=== PATIENT | male | born 1950 | race Caucasian/White ===

== ENCOUNTER 2017-09-03 16:12 | Inpatient (IN) | payer BC ==
[~2017-09-03] VITALS: Ht 172.7 cm; Wt 152.6 kg
[~2017-09-03 16:12] MED LIST: ACHYD1T PO; NITR100C3 PO
[2017-09-03] MEDS ORDERED: D5W 100 ML IVPB 100 ML IV ONE (16:32)
[2017-09-03] MEDS ORDERED: DILTIAZEM 25 MG/5 ML INJ (CARDIZEM) VIAL ONE (16:45)
[2017-09-03] MEDS ORDERED: DILTIAZEM 125 MG/25 ML IV (CARDIZEM) IV ONE (16:45)
[2017-09-03 16:59] LABS: BASOPHILS % (AUTO) 0 % (0-10); EOSINOPHILS # (AUTO) 0.2 10^3/uL (0.0-0.3); EOSINOPHILS % (AUTO) 2 % (0-10); HEMATOCRIT 44 % (40-54); HEMOGLOBIN 14.9 G/DL (13.3-17.7); LYMPHOCYTES # (AUTO) 1.8 X 10^3 (1.0-4.0); LYMPHOCYTES % (AUTO) 23 % (12-44); MEAN CORPUSCULAR HEMOGLOBIN 31 PG (25-34); MEAN CORPUSCULAR HGB CONC 34 G/DL (32-36); MEAN CORPUSCULAR VOLUME 91 FL (80-99); MEAN PLATELET VOLUME 11.3 FL (7.4-10.4); MONOCYTES # (AUTO) 0.5 X 10^3 (0.0-1.0); MONOCYTES % (AUTO) 7 % (0-12); NEUTROPHILS # (AUTO) 5.5 X 10^3 (1.8-7.8); NEUTROPHILS % (AUTO) 68 % (42-75); PLATELET COUNT 203 10^3/uL (130-400); RED BLOOD COUNT 4.85 10^6/uL (4.35-5.85); RED CELL DISTRIBUTION WIDTH 14.3 % (10.0-14.5)
[2017-09-03 17:02] LABS: PROTHROMBIN TIME PATIENT 13.3 SEC (12.2-14.7)
[2017-09-03 17:12] LABS: ALANINE AMINOTRANSFERASE 20 U/L (0-55); ALBUMIN 3.7 GM/DL (3.2-4.5); ALKALINE PHOSPHATASE 85 U/L (40-136); BILIRUBIN,TOTAL 0.3 MG/DL (0.1-1.0); BUN/CREATININE RATIO 25; CALCIUM 9.2 MG/DL (8.5-10.1); CARBON DIOXIDE 23 MMOL/L (21-32); CHLORIDE 109 MMOL/L (98-107); CREATININE SERUM 1.11 MG/DL (0.60-1.30); GFR ESTIMATED > 60; GLUCOSE 126 MG/DL (70-105); MAGNESIUM 1.8 MG/DL (1.8-2.4); SODIUM 143 MMOL/L (135-145); TOTAL PROTEIN 6.5 GM/DL (6.4-8.2)
[2017-09-03 17:19] LABS: MYOGLOBIN SERUM 129.9 NG/ML (10.0-92.0)
--- NOTE | 2017-09-03 17:20 | Diagnostic Imaging Report ---
PATIENT HISTORY: Atrial fibrillation. TECHNIQUE: Single frontal view of the chest. COMPARISON: 09/10/2012 FINDINGS: Evaluation is somewhat suboptimal due to body habitus. Lung volumes are mildly low on the right. There are bibasilar linear opacities, thought to represent atelectasis. The heart is moderately large. There is mild central vascular congestion. Haziness of the lung bases is thought to be due to body habitus. No pneumothorax is seen. No large pleural effusion is seen. IMPRESSION: 1. Linear opacities in lung bases, most likely atelectasis. Moderate cardiomegaly with central vascular congestion. Dictated by: Dictated on workstation # [id number]
--- NOTE | 2017-09-03 18:09 | ED Cardiac General ---
History of Present Illness General Chief Complaint: Cardiac/General Problems Stated Complaint: AFIB Source: patient, spouse Exam Limitations: no limitations History of Present Illness Date Seen by Provider: Sep 03, 2017 Time Seen by Provider: 17:58 Initial Comments The patient presents to the ER by private conveyance with a chief complaint that for the last 6 weeks she's had the flu and felt weak and tired but he just wasn't getting over it went to urgent care couple times over that period of time and couldn't find anything else they went to see his doctor and Claudia and they did some blood work and EKG and called him today and told him he had atrial fibrillation and needed to come to the ER immediately to be worked up. He was given a bolus of Cardizem 10 mg and started on a drip which has brought his rate down from 120 -130 initially to 90s. He is not endorsing any chest pain just weakness and getting very short of breath on exertion. He has no history of coronary artery disease never smoked or to the DIP. Does not use recreational drugs. Drinks alcohol about 2 liquor drinks a day on average. He did have an echocardiogram done in [place] yesterday and has not got the results yet. He is not having a cough fever chills nausea vomiting or diarrhea. No sweats. Allergies and Home Medications Allergies Coded Allergies: No Known Drug Allergies (Unverified , 06/23/12) Patient Home Medication List Home Medication List Reviewed: Yes Review of Systems Constitutional: No chills, No diaphoresis EENTM: No Blurred Vision, No Double Vision Respiratory: Denies Cough, Denies Shortness of Air Cardiovascular: Denies Chest Pain, Irregular Heart Rate, Lightheadedness, Palpitations, Denies Syncope Gastrointestinal: Denies Abdomen Distended, Denies Abdominal Pain Genitourinary: Denies Burning, Denies Discharge Musculoskeletal: No back pain, No joint pain Skin: No pruritus, No rash Psychiatric/Neurological: Denies Headache, Denies Numbness Past Cbyzrtd-Qhlsjc-Erhyes Hx Patient Social History Alcohol Use: Denies Use Recreational Drug Use: No Smoking Status: Never a Smoker Recent Foreign Travel: No Contact w/Someone Who Travel: No Genitourinary Genitourinary Disorders: Kidney Stones Physical Exam Vital Signs Vital Signs - First Documented 09/03/17 16:20 Temp 97.9 Pulse 126 Resp 20 B/P (MAP) 137/101 (113) Pulse Ox 94 O2 Delivery Room Air Capillary Refill : General Appearance: No Apparent Distress, WD/WN HEENT: PERRL/EOMI, Pharynx Normal Neck: Full Range of Motion, Non Tender, Supple Respiratory: Chest Non Tender, Lungs Clear, Normal Breath Sounds, No Accessory Muscle Use, No Respiratory Distress Cardiovascular: No Edema, No Murmur, Irregularly Irregular, Tachycardia Gastrointestinal: Normal Bowel Sounds, Non Tender, Soft Neurologic/Psychiatric: Alert, Oriented x3 Skin: Normal Color, Warm/Dry Progress/Results/Core Measures Results/Orders Lab Results Laboratory Tests Test 09/03/17 16:35 Range/Units White Blood Count 8.0 4.3-11.0 10^3/uL Red Blood Count 4.85 4.35-5.85 10^6/uL Hemoglobin 14.9 13.3-17.7 G/DL Hematocrit 44 40-54 % Mean Corpuscular Volume 91 80-99 FL Mean Corpuscular Hemoglobin 31 25-34 PG Mean Corpuscular Hemoglobin Concent 34 32-36 G/DL Red Cell Distribution Width 14.3 10.0-14.5 % Platelet Count 203 130-400 10^3/uL Mean Platelet Volume 11.3 H 7.4-10.4 FL Neutrophils (%) (Auto) 68 42-75 % Lymphocytes (%) (Auto) 23 12-44 % Monocytes (%) (Auto) 7 0-12 % Eosinophils (%) (Auto) 2 0-10 % Basophils (%) (Auto) 0 0-10 % Neutrophils # (Auto) 5.5 1.8-7.8 X 10^3 Lymphocytes # (Auto) 1.8 1.0-4.0 X 10^3 Monocytes # (Auto) 0.5 0.0-1.0 X 10^3 Eosinophils # (Auto) 0.2 0.0-0.3 10^3/uL Basophils # (Auto) 0.0 0.0-0.1 10^3/uL Prothrombin Time 13.3 12.2-14.7 SEC INR Comment 1.0 0.8-1.4 Activated Partial Thromboplast Time 30 24-35 SEC Sodium Level 143 135-145 MMOL/L Potassium Level 4.0 3.6-5.0 MMOL/L Chloride Level 109 H 98-107 MMOL/L Carbon Dioxide Level 23 21-32 MMOL/L Anion Gap 11 5-14 MMOL/L Blood Urea Nitrogen 28 H 7-18 MG/DL Creatinine 1.11 0.60-1.30 MG/DL Estimat Glomerular Filtration Rate > 60 BUN/Creatinine Ratio 25 Glucose Level 126 H 70-105 MG/DL Calcium Level 9.2 8.5-10.1 MG/DL Magnesium Level 1.8 1.8-2.4 MG/DL Total Bilirubin 0.3 0.1-1.0 MG/DL Aspartate Amino Transf (AST/SGOT) 17 5-34 U/L Alanine Aminotransferase (ALT/SGPT) 20 0-55 U/L Alkaline Phosphatase 85 40-136 U/L Myoglobin 129.9 H 10.0-92.0 NG/ML Troponin I < 0.30 <0.30 NG/ML Total Protein 6.5 6.4-8.2 GM/DL Albumin 3.7 3.2-4.5 GM/DL My Orders Orders - JAYSON NICHOLSON Apixaban Tablet (Eliquis Tablet) (09/03/17 18:15) Medications Given in ED Current Medications Medications Dose Ordered Sig/Sam Route Start Time Stop Time Status Last Admin Dose Admin Apixaban 5 mg ONCE ONCE PO 09/03/17 18:15 09/03/17 18:16 DC 09/03/17 18:33 5 MG Dextrose 100 ml @ ud STK-MED ONCE IV 09/03/17 16:32 09/03/17 16:35 DC 09/03/17 16:25 10 MLS/HR Diltiazem HCl 25 mg STK-MED ONCE .ROUTE 09/03/17 16:45 09/03/17 16:48 DC 09/03/17 16:20 25 MG Diltiazem HCl 125 mg STK-MED ONCE IV 09/03/17 16:45 09/03/17 16:48 DC 09/03/17 16:25 125 MG Vital Signs/I&O Vital Sign - Last 12Hours 09/03/17 09/03/17 09/03/17 16:20 16:25 18:20 Temp 97.9 Pulse 126 135 87 Resp 20 20 B/P (MAP) 137/101 (113) 126/94 Pulse Ox 94 97 O2 Delivery Room Air Room Air Progress Note : Time: 02:54 Progress Note 10 mg Cardizem bolus followed by Cardizem drip initiated at 10 mg. Patient is still having atrial fibrillation but is rate controlled in the 90s to 100s. ECG Initial ECG Impression Date: Sep 03, 2017 Initial ECG Impression Time: 16:17 Initial ECG Rate: 124 Initial ECG Rhythm: A Fib/Flutter Initial ECG Intervals: QT (437) Initial ECG Impression: Atrial Fibrillation w/RVR Initial ECG Comparisson: No Previous ECG Available Comment Atrial fibrillation with rapid ventricular response. No ST segment elevation or depression. Diagnostic Imaging Diagonstic Imaging: Xray Plain Films/CT/US/NM/MRI: chest Comments [facility] [place], [place] NAME: AVILA GARCIA [facility] REC#: [id number] PT STATUS: REG ER : 1950 PHYSICIAN: ANCELMO SORENSEN MD ADMIT DATE: 09/03/17/ER Draft Date of Exam:09/03/17 CHEST 1 VIEW, AP/PA ONLY PATIENT HISTORY: Atrial fibrillation. TECHNIQUE: Single frontal view of the chest. COMPARISON: 09/10/2012 FINDINGS: Evaluation is somewhat suboptimal due to body habitus. Lung volumes are mildly low on the right. There are bibasilar linear opacities, thought to represent atelectasis. The heart is moderately large. There is mild central vascular congestion. Haziness of the lung bases is thought to be due to body habitus. No pneumothorax is seen. No large pleural effusion is seen. IMPRESSION: 1. Linear opacities in lung bases, most likely atelectasis. Moderate cardiomegaly with central vascular congestion. Dictated on workstation # [id number] Dict: 09/03/17 1713 Trans: 09/03/17 1719 [id number] Interpreted by: PREET WILDER MD Electronically signed by: Reviewed: Reviewed by Me Departure Communication (Admissions) Time/Spoke to Admitting Phy: 18:12 Communication Discussed case lab imaging findings with Dr. Miller and she'll see the patient. Time/Spoke to Consulting Phy: 18:09 Communication/Consulting Discussed case with Dr. Downey and he recommends L acquits 5 mg now then every 12 hours. We discussed lab work, EKG, findings and he wants him on cardiac stepdown floor on the Cardizem drip. Impression Impression: Primary Impression: Atrial fibrillation with rapid ventricular response Disposition: ADMITTED INPATIENT Condition: Stable Admissions Decision to Admit Reason: Admit from ER (General) Decision to Admit/Date: Sep 03, 2017 Time/Decision to Admit Time: 18:13 Departure-Patient Inst. Referrals: ZULAY ESCAMILLA (PCP) Primary Care Physician JAYSON NICHOLSON Sep 03, 2017 18:09
[2017-09-03] MEDS ORDERED: APIXABAN 5 MG (ELIQUIS) TABLET PO ONE (18:15)
[2017-09-03 19:06] VITALS: BP 127/94
[2017-09-03] MEDS ORDERED: CATHETER FLUSH 10 ML SYR IV PRN (19:45)
[2017-09-03] MEDS ORDERED: ONDANSETRON 4 MG/2 ML (SDV) Z0FRAN IV PRN (19:45)
[2017-09-03 20:00] VITALS: BP 129/90
[2017-09-03 21:00] VITALS: BP 117/91
[2017-09-03] MEDS: APIXABAN 5 MG (ELIQUIS) TABLET PO SCH (21:00)
[2017-09-03] MEDS: ATORVASTATIN 40 MG (LIPITOR) TABLET PO SCH (21:44)
[2017-09-03 22:00] VITALS: BP 153/96
[2017-09-03] MEDS: CATHETER FLUSH 10 ML SYR IV SCH (22:00)
[2017-09-03 23:00] VITALS: BP 114/86
[2017-09-04] VITALS (22 sets, daily range): BP systolic 118–151; BP diastolic 84–108
[2017-09-04] MEDS ORDERED: NS (IVPB) 100 ML ONE (02:28)
[2017-09-04] MEDS ORDERED: DILTIAZEM 125 MG/25 ML IV (CARDIZEM) IV ONE (02:28)
[2017-09-04 03:40] LABS: BASOPHILS % (AUTO) 0 % (0-10); EOSINOPHILS # (AUTO) 0.2 10^3/uL (0.0-0.3); EOSINOPHILS % (AUTO) 3 % (0-10); HEMATOCRIT 43 % (40-54); HEMOGLOBIN 14.2 G/DL (13.3-17.7); LYMPHOCYTES % (AUTO) 29 % (12-44); MEAN CORPUSCULAR HEMOGLOBIN 30 PG (25-34); MEAN CORPUSCULAR HGB CONC 33 G/DL (32-36); MEAN CORPUSCULAR VOLUME 92 FL (80-99); MEAN PLATELET VOLUME 10.6 FL (7.4-10.4); MONOCYTES # (AUTO) 0.5 X 10^3 (0.0-1.0); MONOCYTES % (AUTO) 7 % (0-12); NEUTROPHILS # (AUTO) 4.2 X 10^3 (1.8-7.8); NEUTROPHILS % (AUTO) 61 % (42-75); PLATELET COUNT 187 10^3/uL (130-400); RED CELL DISTRIBUTION WIDTH 14.5 % (10.0-14.5); WHITE BLOOD COUNT 6.9 10^3/uL (4.3-11.0)
[2017-09-04 03:58] LABS: MAGNESIUM 2.1 MG/DL (1.8-2.4); PHOSPHORUS 4.3 MG/DL (2.3-4.7)
[2017-09-04 04:00] LABS: BUN/CREATININE RATIO 27; CALCIUM 8.8 MG/DL (8.5-10.1); CARBON DIOXIDE 24 MMOL/L (21-32); CHLORIDE 107 MMOL/L (98-107); CREATININE SERUM 0.89 MG/DL (0.60-1.30); GFR ESTIMATED > 60; GLUCOSE 128 MG/DL (70-105); SODIUM 140 MMOL/L (135-145)
[2017-09-04 04:15] LABS: CHOLESTEROL 217 MG/DL (< 200); HDL CHOLESTEROL 38 MG/DL (40-60); TRIGLYCERIDES 130 MG/DL (<150); VLDL CHOLESTEROL 26 MG/DL (5-40)
[2017-09-04] MEDS ORDERED: POTASSIUM CL 10MEQ/50ML IVPB 50 ML IV SCH (06:00)
[2017-09-04] MEDS: CATHETER FLUSH 10 ML SYR IV SCH ×3 (06:00→20:32)
[2017-09-04] MEDS ORDERED: KCL 20 MEQ TAB (K-DUR) PO SCH (06:00)
[2017-09-04] MEDS ORDERED: MAGNESIUM 1 GM/100 ML IVPB 100 ML IV SCH (06:00)
--- NOTE | 2017-09-04 06:22 | Pulmonary Consultation ---
History of Present Illness History of Present Illness Date of Consultation 09/04/17 06:19 Time Seen by Provider: 06:19 Date of Admission History of Present Illness Allergies and Home Medications Allergies Coded Allergies: No Known Drug Allergies (Unverified , 06/23/12) Past Szdogxb-Sqkaqi-Syjdut Hx Patient Social History Alcohol Use: Denies Use Number of Drinks Today: 0 Alcohol Beverage of Choice: [place] Recreational Drug Use: No Smoking Status: Never a Smoker Recent Foreign Travel: No Contact w/Someone Who Travel: No Recent Infectious Disease Expo: No Recent Hopitalizations: No Seasonal Allergies Seasonal Allergies: No Surgeries History of Surgeries: Yes ( ureteral stients, lithrotripsy, cyst removed from pancreas appendectomy ) Respiratory History of Respiratory Disorde: No Currently Using CPAP: No Currently Using BIPAP: No Cardiovascular History of Cardiac Disorders: No Neurological History of Neurological Disord: No Genitourinary History of Genitourinary Disor: No Genitourinary Disorders: Kidney Stones Gastrointestinal History of Gastrointestinal Di: No Musculoskeletal History of Musculoskeletal Dis: Yes Musculoskeletal Disorders: Arthritis, Rheumatoid Arthritis Endocrine History of Endocrine Disorders: Yes (OBESITY) HEENT History of HEENT Disorders: No Cancer History of Cancer: No Psychosocial History of Psychiatric Problem: No Integumentary History of Skin or Integumenta: No Blood Transfusions History of Blood Disorders: No Family Medical History Family Medial History: Arthritis 19 MOTHER Asthma 19 FATHER (emhazema) Cardiovascular disease 19 MOTHER (heart problems) Exam Exam Vital Signs Date Time Temp Pulse Resp B/P (MAP) Pulse Ox O2 Delivery O2 Flow Rate FiO2 09/04/17 06:00 72 16 118/95 (103) 94 Nasal Cannula 2.00 09/04/17 05:00 76 18 128/98 (108) 94 Nasal Cannula 2.00 09/04/17 04:12 67 11 127/85 95 Nasal Cannula 2.00 09/04/17 04:00 93 Nasal Cannula 2.00 09/04/17 04:00 63 12 132/95 (107) 94 Nasal Cannula 2.00 09/04/17 03:00 70 14 139/90 (106) 95 Nasal Cannula 2.00 09/04/17 02:00 74 15 123/98 (106) 94 Nasal Cannula 2.00 09/04/17 01:47 Nasal Cannula 2.00 09/04/17 01:21 59 09/04/17 01:00 80 09/04/17 01:00 73 17 129/87 (101) 93 Room Air 09/04/17 00:00 79 14 126/84 (98) 92 Room Air 09/04/17 00:00 93 Room Air 09/04/17 00:00 98.4 Room Air 09/03/17 23:00 81 19 114/86 (95) 92 Room Air 09/03/17 22:00 99 153/96 (115) 93 Room Air 09/03/17 21:00 75 18 117/91 (100) 91 Room Air 09/03/17 20:00 87 22 129/90 (103) 94 Room Air 09/03/17 20:00 93 Room Air 09/03/17 19:42 93 Room Air 09/03/17 19:06 98.6 101 22 127/94 (105) 93 Room Air 09/03/17 19:00 100 09/03/17 18:20 87 20 126/94 97 Room Air 09/03/17 16:25 135 09/03/17 16:20 97.9 126 20 137/101 (113) 94 Room Air I & O 09/04/17 07:00 Intake Total 400 ml Output Total 450 ml Balance -50 ml General Appearance: No Apparent Distress, WD/WN HEENT: PERRL/EOMI, Pharynx Normal Neck: Full Range of Motion, Non Tender, Supple Respiratory: Chest Non Tender, Lungs Clear, Normal Breath Sounds, No Accessory Muscle Use, No Respiratory Distress Cardiovascular: No Edema, No Murmur, Irregularly Irregular, Tachycardia Capillary Refill: Less Than 3 Seconds Neurologic/Psychiatric: Alert, Oriented x3 Skin: Normal Color, Warm/Dry Results Lab Laboratory Tests 09/03/17 16:35 09/04/17 03:20 Assessment/Plan Assessment/Plan Afib RVR -Cardizem gtt -Eliquis -Cardiology following Morbid obese, nocturnal desats (per [employer]), witnessed apnea, snoring -Out patient PSG Hypoxia -2liters of oxygen I will have pt f/u with me as an out patient to get his TREV diagnosed. BYRON AHUJA DO Sep 04, 2017 06:22
[2017-09-04 06:56] LABS: ABG BASE EXCESS 2.1 MMOL/L (-2.5-2.5); ABG OXYGEN SATURATION 97 % (94-100); ABG PCO2 40 MMHG (35-45); ABG PH 7.43 (7.37-7.43); ABG PO2 75 MMHG (79-93); ABG TCO2 27.5 MMOL/L (21.0-31.0)
[2017-09-04 06:57] LABS: ALLENS TEST YES-POS; INSPIRED O2 2L; PATIENT TEMP 97.6; VENTILATOR NO
--- NOTE | 2017-09-04 07:44 | Diagnostic Imaging Report ---
INDICATION: ICU management, atrial fibrillary with RVR. COMPARISON: 09/03/2017. FINDINGS: Unchanged low lung volumes with asymmetric elevation of the right hemidiaphragm. The visible lungs are clear. Please note the posterior lower lobes are very poorly evaluated by portable radiography. No pneumothorax or pleural effusion. Stable cardiac enlargement. IMPRESSION: No adverse development in the interim. Dictated by: Dictated on workstation # [id number]
[2017-09-04] MEDS: APIXABAN 5 MG (ELIQUIS) TABLET PO SCH ×2 (08:17→20:32)
[2017-09-04] MEDS ORDERED: ASPIRIN 81 MG CHEW (CHILDREN'S ASA) PO SCH (09:00)
[2017-09-04] MEDS: DILTIAZEM IV FOR DRIP 125 MG in NS (IVPB) 100 ML IV SCH ×2 (09:45→20:21)
[2017-09-04] MEDS ORDERED: INFLUENZA TRIvalent 2017-2018 0.5 ML/45 MCG SYR IM ONE (11:00)
[2017-09-04] MEDS ORDERED: ASPI-999 PO (11:01)
--- NOTE | 2017-09-04 11:10 | History & Physical-Hospitalist ---
HPI History of Present Illness: HPI/Chief Complaint Chief complaint: New onset atrial fibrillation with rapid ventricular response History of present illness: This is a 66-year-old white male that recently established with [facility] out of [facility] but had not had any medical care for many years who presented to the emergency room with shortness of breath. Patient was found to have new onset atrial fibrillation with rapid ventricular response requiring Cardizem drip and cardiology consultation and management. He has never had a sleep study and it appears that he has sleep apnea likely giving rise to risk factors for age fibrillation and heart disease. He reports that he had right rib fractures after a fall in June and subsequent pneumonia several times since that time and treated in urgent care and feels like that was the first time that his health became compromised. 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 Source: patient, family, RN/MD Exam Limitations: no limitations Date Seen 09/04/17 Time Seen by Provider: 10:00 Attending Physician Adore Miller Kathryn H Arnp Referring Physician Date of Admission Sep 03, 2017 at 18:31 Home Medications & Allergies Home Medications Reviewed patient Home Medication Reconciliation Form Allergies Allergies Coded Allergies No Known Drug Allergies ([id number]/20/12) Past Xyczcxy-Pesybm-Oifuhm Hx Patient Social History Marrital Status: Employed/Student: employed ([employer] in [place] [facility]) Alcohol Use: Denies Use Number of Drinks Today: 0 Alcohol Beverage of Choice: [place] Recreational Drug Use: No Smoking Status: Never a Smoker Physical Abuse Screen: No Sexual Abuse: No Recent Foreign Travel: No Contact w/other who traveled: No Recent Hopitalizations: No Recent Infectious Disease Expo: No Seasonal Allergies Seasonal Allergies: No Surgeries Yes ( ureteral stients, lithrotripsy, cyst removed from pancreas appendectomy ) Respiratory No Currently Using CPAP: No Currently Using BIPAP: No Cardiovascular No Neurological No Genitourinary No Kidney Stones Gastrointestinal No Musculoskeletal Yes Arthritis, Rheumatoid Arthritis Endocrine History of Endocrine Disorders: Yes (OBESITY) HEENT History of HEENT Disorders: No Cancer No Psychosocial History of Psychiatric Problem: No Integumentary History of Skin or Integumenta: No Blood Transfusions History of Blood Disorders: No Family Medical History Family Hx: Arthritis 19 MOTHER Asthma 19 FATHER (emhazema) Cardiovascular disease 19 MOTHER (heart problems) Review of Systems Constitutional: see HPI EENTM: no symptoms reported Respiratory: short of breath, wheezing Cardiovascular: palpitations Gastrointestinal: no symptoms reported Genitourinary: no symptoms reported Musculoskeletal: no symptoms reported Skin: no symptoms reported Psychiatric/Neurological: No Symptoms Reported All Other Systems Reviewed Negative Unless Noted: Yes Physical Exam Physical Exam Vital Signs Vital Signs - First Documented 09/03/17 09/04/17 16:20 01:47 Temp 97.9 Pulse 126 Resp 20 B/P (MAP) 137/101 (113) Pulse Ox 94 O2 Delivery Room Air O2 Flow Rate 2.00 Capillary Refill : Less Than 3 Seconds General Appearance: No Apparent Distress, WD/WN, Chronically ill, Obese Eyes: Bilateral Eye Normal Inspection, Bilateral Eye PERRL HEENT: PERRL/EOMI, Normal ENT Inspection, Pharynx Normal Neck: Full Range of Motion, Normal Inspection, Non Tender, Supple, Carotid Bruit Respiratory: Chest Non Tender, Lungs Clear, Normal Breath Sounds, No Accessory Muscle Use, No Respiratory Distress Cardiovascular: No Edema, No Gallop, No JVD, No Murmur, Normal Peripheral Pulses, Irregularly Irregular, Tachycardia Gastrointestinal: Normal Bowel Sounds, No Organomegaly, No Pulsatile Mass, Non Tender, Soft Back: Normal Inspection, No CVA Tenderness, No Vertebral Tenderness Extremity: Normal Capillary Refill, Normal Inspection, Normal Range of Motion, Non Tender, No Calf Tenderness, No Pedal Edema Neurologic/Psychiatric: Alert, Oriented x3, No Motor/Sensory Deficits, Normal Mood/Affect Skin: Normal Color, Warm/Dry Lymphatic: No Adenopathy Results Results/Procedures Lab Laboratory Tests 09/03/17 16:35 09/04/17 03:20 Assessment/Plan Admission Diagnosis Assessment: New-onset atrial fibrillation with rapid ventricular response Presumed sleep apnea will need sleep study and evaluation as an outpatient Rib fractures in June 2017 and resulted pulmonary infections with pneumonias 4 times since that time Hypoxemia baseline on ABG Hyperlipidemia Admission Status: Inpatient Order (span 2 midnights) Reason for Inpatient Admission: IV Cardizem and transition to by mouth rate control Assessment and Plan Plan: Appreciate cardiology and pulmonary consultation Cardizem drip Monitor closely Oxygen supplementation Clinical Quality Measures DVT/VTE Risk/Contraindication: Risk Factor Score Per Nursin RFS Level Per Nursing on Admit: 3=High ADORE MILLER DO Sep 04, 2017 11:09
--- NOTE | 2017-09-04 13:44 | Consultation-Cardiology ---
HPI-Cardiology Cardiology Consultation: Date of Consultation 09/04/17 Time Seen by Provider: 13:20 Date of Admission Attending Physician Adore Miller DO Admitting Physician Fidelina Hussein Consulting Physician ЕКАТЕРИНА HIGHTOWER MD, MA, FACP, FACC, FSCAI, CCDS HPI: Chief Complaint: Shortness of breath HPI: 66 yo man with 2 months of increasing shortness of breath, recently diagnosed with A Fib with RVR and referred to ER by his pcp from where he has been admitted to Dr Miller's service. has been on iv dilt and oral apixaban since last night. Heart rate is currently better. Denies cp or palp or syncope or fever/chills. Has chronic leg swelling that progresses with the day and improves overnight Review of Systems-Cardiology Review of Systems Constitutional: malaise, tiredness Eyes: No vision change Ears/Nose/Throat: No ear discharge, No nasal drainage, No recent hearing loss Respiratory: As described under HPI Cardiovascular: As described under HPI Gastrointestinal: No constipation, No diarrhea, No difficulty swallowing, No vomiting Genitourinary: No dysuria, No hematuria, No urine frequency changes Musculoskeletal: back pain (chronic) Skin: No rash, No ulcerations Psychiatric/Neurological: No seizure, No focal weakness, No syncope Hematologic: No bleeding abnormalities RNZ-Uszbbn-Sgasej Hx Patient Social History Alcohol Use: Denies Use Recreational Drug Use: No Smoking Status: Never a Smoker Recent Foreign Travel: No Recent Infectious Disease Expo: No Hospitalization with Isolation: Denies Physical Abuse Screen: No Sexual Abuse: No Past Medical History PMH As described under Assessment. Family Medical History Family Medical History: A brother suddenly at age 21 Family History: Arthritis 19 MOTHER Asthma 19 FATHER (emhazema) Cardiovascular disease 19 MOTHER (heart problems) Allergies and Home Medications Allergies Coded Allergies: No Known Drug Allergies (Unverified , 06/23/12) Home Medications Aspirin 81 Mg Tab.chew, 81 MG PO DAILY, (Reported) Patient Home Medication List Home Medication List Reviewed: Yes Physical Exam-Cardiology Physical Exam Vital Signs/I&O Vital Sign - Last 12Hours 09/04/17 09/04/17 09/04/17 09/04/17 01:47 02:00 03:00 04:00 Pulse 74 70 63 Resp 15 14 12 B/P (MAP) 123/98 (106) 139/90 (106) 132/95 (107) Pulse Ox 94 95 94 O2 Delivery Nasal Cannula Nasal Cannula Nasal Cannula Nasal Cannula O2 Flow Rate 2.00 2.00 2.00 2.00 09/04/17 09/04/17 09/04/17 09/04/17 04:00 04:12 05:00 06:00 Pulse 67 76 72 Resp 11 18 16 B/P (MAP) 127/85 128/98 (108) 118/95 (103) Pulse Ox 93 95 94 94 O2 Delivery Nasal Cannula Nasal Cannula Nasal Cannula Nasal Cannula O2 Flow Rate 2.00 2.00 2.00 2.00 09/04/17 09/04/17 09/04/17 09/04/17 07:00 07:00 08:00 08:15 Pulse 75 77 59 Resp 16 17 B/P (MAP) 136/86 (103) 139/96 (110) Pulse Ox 94 94 O2 Delivery Nasal Cannula Nasal Cannula Nasal Cannula O2 Flow Rate 2.00 2.00 2.00 09/04/17 09/04/17 09/04/17 09/04/17 08:16 09:00 10:00 11:00 Temp 97.2 Pulse 77 85 80 74 Resp 20 15 9 24 B/P (MAP) 128/91 (103) 133/94 (107) 124/97 (106) 139/94 (109) Pulse Ox 94 94 97 94 O2 Delivery Nasal Cannula Nasal Cannula Nasal Cannula Nasal Cannula O2 Flow Rate 2.00 2.00 2.00 2.00 09/04/17 09/04/17 11:30 12:29 O2 Delivery Nasal Cannula Nasal Cannula O2 Flow Rate 2.00 2.00 Intake and Output 09/04/17 00:00 Intake Total 200 ml Output Total 450 ml Balance -250 ml Capillary Refill : Less Than 3 Seconds Constitutional: AAO x 3, well-developed, well-nourished, other (obese) HEENT: PERRL, EOMI, hearing is well preserved, No xanthelasmas are seen Neck: No carotid bruit, carotid pulses are 2 + bilaterally, with good upstrokes Respiratory: No accessory muscle use, No respiratory distress, lungs clear to auscultation, No stridor, No wheezing Cardiovascular: irregularly irregular, S1 and S2, systolic murmur (faint JUANITA at card base) Gastrointestinal: No tender, soft, No guarding, No rebound, audible bowel sounds Extremities: No clubbing, No cyanosis, No significant edema Neurologic/Psychiatric: oriented x 3, grossly intact, power is 5/5 both on sides Skin: No rash, No ulcerations Data Review Labs Laboratory Tests 09/03/17 16:35: White Blood Count 8.0, Red Blood Count 4.85, Hemoglobin 14.9, Hematocrit 44, Mean Corpuscular Volume 91, Mean Corpuscular Hemoglobin 31, Mean Corpuscular Hemoglobin Concent 34, Red Cell Distribution Width 14.3, Platelet Count 203, Mean Platelet Volume 11.3H, Neutrophils (%) (Auto) 68, Lymphocytes (%) (Auto) 23 , Monocytes (%) (Auto) 7, Eosinophils (%) (Auto) 2, Basophils (%) (Auto) 0, Neutrophils # (Auto) 5.5, Lymphocytes # (Auto) 1.8, Monocytes # (Auto) 0.5, Eosinophils # (Auto) 0.2, Basophils # (Auto) 0.0, Prothrombin Time 13.3, INR Comment 1.0, Activated Partial Thromboplast Time 30, Sodium Level 143, Potassium Level 4.0, Chloride Level 109H, Carbon Dioxide Level 23, Anion Gap 11 , Blood Urea Nitrogen 28H, Creatinine 1.11, Estimat Glomerular Filtration Rate > 60, BUN/Creatinine Ratio 25, Glucose Level 126H, Calcium Level 9.2, Magnesium Level 1.8, Total Bilirubin 0.3, Aspartate Amino Transf (AST/SGOT) 17, Alanine Aminotransferase (ALT/SGPT) 20, Alkaline Phosphatase 85, Myoglobin 129.9H, Troponin I < 0.30, Total Protein 6.5, Albumin 3.7 09/04/17 03:20: White Blood Count 6.9, Red Blood Count 4.70, Hemoglobin 14.2, Hematocrit 43, Mean Corpuscular Volume 92, Mean Corpuscular Hemoglobin 30, Mean Corpuscular Hemoglobin Concent 33, Red Cell Distribution Width 14.5, Platelet Count 187, Mean Platelet Volume 10.6H, Neutrophils (%) (Auto) 61, Lymphocytes (%) (Auto) 29 , Monocytes (%) (Auto) 7, Eosinophils (%) (Auto) 3, Basophils (%) (Auto) 0, Neutrophils # (Auto) 4.2, Lymphocytes # (Auto) 2.0, Monocytes # (Auto) 0.5, Eosinophils # (Auto) 0.2, Basophils # (Auto) 0.0, Sodium Level 140, Potassium Level 4.0, Chloride Level 107, Carbon Dioxide Level 24, Anion Gap 9, Blood Urea Nitrogen 24H, Creatinine 0.89, Estimat Glomerular Filtration Rate > 60, BUN/ Creatinine Ratio 27, Glucose Level 128H, Calcium Level 8.8, Magnesium Level 2.1 , Phosphorus Level 4.3, Triglycerides Level 130, Cholesterol Level 217H, LDL Cholesterol Direct 166H, VLDL Cholesterol 26, HDL Cholesterol 38L, Thyroid Stimulating Hormone (TSH) 1.93 09/04/17 06:50: Blood Gas Puncture Site R RAD, Blood Gas Patient Temperature 97.6, Arterial Blood pH 7.43, Arterial Blood Partial Pressure CO2 40, Arterial Blood Partial Pressure O2 75L, Arterial Blood HCO3 26, Arterial Blood Total CO2 27.5, Arterial Blood Oxygen Saturation 97, Arterial Blood Base Excess 2.1, He Test YES-POS, Blood Gas Ventilator Setting NO, Blood Gas Inspired Oxygen 2L Laboratory Tests 09/03/17 16:35 09/04/17 03:20 A/P-Cardiology Assessment/Admission Diagnosis Shortness of breath, probably multifactorial (see below) Atrial fibrillation of unknown age associated with RVR. First documented on 09/01 Obesity with BMI approx Probable obesity-hypoventilation syndrome Suspected TREV Discussion and Recomendations * Multiple issues reviewed and discussed with the patient * Dilt for rate control * Apixaban for stroke prophylaxis * Recommend sleep studies * Eval TSH * Monitor labs * Echo to eval for structural heart disease * Advised efforts at wgt loss and discussed its importance Clinical Quality Measures DVT/VTE Risk/Contraindication: Risk Factor Score Per Nursin RFS Level Per Nursing on Admit: 3=High ЕКАТЕРИНА HIGHTOWER MD FACP [facility] Sep 04, 2017 13:44
[2017-09-04] MEDS ORDERED: DILTIAZEM 180 MG (CARDIZEM CD) CAP PO ONE (14:00)
[2017-09-04] MEDS: ATORVASTATIN 40 MG (LIPITOR) TABLET PO SCH (20:32)
[2017-09-05 03:30] VITALS: BP 141/97
[2017-09-05] MEDS: CATHETER FLUSH 10 ML SYR IV SCH ×3 (05:21→20:43)
[2017-09-05] MEDS: DILTIAZEM 180 MG (CARDIZEM CD) CAP PO SCH (08:15)
[2017-09-05] MEDS: APIXABAN 5 MG (ELIQUIS) TABLET PO SCH ×2 (08:15→20:43)
[2017-09-05 08:16] VITALS: BP 136/82
[2017-09-05 11:52] VITALS: BP 138/88
--- NOTE | 2017-09-05 11:53 | Progress Note-Hospitalist ---
Progress Note HPI/CC on Admission Chief complaint: New onset atrial fibrillation with rapid ventricular response History of present illness: This is a 66-year-old white male that recently established with Day Hussein out of [facility] but had not had any medical care for many years who presented to the emergency room with shortness of breath. Patient was found to have new onset atrial fibrillation with rapid ventricular response requiring Cardizem drip and cardiology consultation and management. He has never had a sleep study and it appears that he has sleep apnea likely giving rise to risk factors for age fibrillation and heart disease. He reports that he had right rib fractures after a fall in June and subsequent pneumonia several times since that time and treated in urgent care and feels like that was the first time that his health became compromised. 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 Progress Notes/Assess & Plan Date Seen 09/05/17 Time Seen by Provider: 11:00 Admission Dx/Process Assessment: New-onset atrial fibrillation with rapid ventricular response Presumed sleep apnea will need sleep study and evaluation as an outpatient Rib fractures in June 2017 and resulted pulmonary infections with pneumonias 4 times since that time Hypoxemia baseline on ABG Hyperlipidemia Diagonsis/Assessment & Plan Patient doing well. AF still present but now rate controlled EST scheduled for tomorrow by Dr Davis and if that is negative he will be DC home with close f/u. Tolerating meds Needs CPAP so will arrange that as outpt. Pleasant, O x 3, at bedside Irr Irr, CTAB diminished all piedra Noted 1+ edema Assessment: New-onset atrial fibrillation with rapid ventricular response now rate controlled Presumed sleep apnea will need sleep study and evaluation as an outpatient Rib fractures in June 2017 and resulted pulmonary infections with pneumonias 4 times since that time Hypoxemia baseline on ABG Hyperlipidemia Volume overload receiving Lasix and K+ now. Plan: Appreciate cardiology and pulmonary consultation Cardizem PO Monitor closely Oxygen supplementation Home O2 evaluation EST tomorrow Needs f/u with either me or Day [facility] at [facility] [place] DO Sep 05, 2017 11:53
--- NOTE | 2017-09-05 12:03 | Progress Note-Cardiology ---
Cardiology SOAP Progress Note Subjective: Palpitations better Exertional shortness of breath persistent Ankle swelling as before No cp No syncope No N/V/D Objective: I&O/Vital Signs Vital Sign - Last 12Hours 09/05/17 09/05/17 09/05/17 09/05/17 01:00 03:30 07:00 08:16 Temp 97.5 97.5 Pulse 60 66 72 69 Resp 20 20 B/P (MAP) 141/97 (112) 136/82 (100) Pulse Ox 93 94 O2 Delivery Nasal Cannula Room Air O2 Flow Rate 2.00 09/05/17 09/05/17 08:20 11:52 Temp 98.1 Pulse 85 Resp 20 B/P (MAP) 138/88 (105) Pulse Ox 93 O2 Delivery Room Air Room Air Intake and Output 09/05/17 00:00 Intake Total 1116 ml Output Total 200 ml Balance 916 ml Weight (Pounds): 338 Weight (Ounces): 5.0 Weight (Calculated Kilograms): 153.502089 Constitutional: AAO x 3, well-developed, well-nourished, other (obese) Respiratory: No accessory muscle use, No respiratory distress, lungs clear to auscultation, No stridor, No wheezing Cardiovascular: irregularly irregular, S1 and S2, systolic murmur (faint JUANITA at card base) Gastrointestional: No tender, soft, No guarding, No rebound, audible bowel sounds Extremities: No clubbing, No cyanosis, No significant edema Neurologic/Psychiatric: oriented x 3, grossly intact, power is 5/5 both on sides Skin: No rash, No ulcerations Results/Procedures: Labs Microbiology 09/03/17 MRSA Screen - Final, Complete MRSA not isolated A/P: Assessment: Shortness of breath, probably multifactorial (see below) Atrial fibrillation of unknown age associated with RVR. First documented on 09/01. Now rate is better controlled Obesity with BMI approx Probable obesity-hypoventilation syndrome Acute diastolic CHF Suspected TREV TSH normal on 09/05/17 (1.93) Plan: * Multiple issues reviewed and discussed with the patient * Dilt for rate control * Apixaban for stroke prophylaxis * Recommend sleep studies * Add diuretic to control symptoms of CHF * Monitor labs * Echo to eval for structural heart disease * Advised efforts at wgt loss and discussed its importance * I spoke with him and his and answered questions ЕКАТЕРИНА HIGHTOWER MD FACP FAC CCDS Sep 05, 2017 12:03
[2017-09-05] MEDS ORDERED: FUROSEMIDE 40 MG/4 ML INJ (LASIX) IVP ONE (14:00)
[2017-09-05] MEDS ORDERED: KCL 10 MEQ TAB (MICRO K) PO ONE (14:00)
[2017-09-05 15:17] VITALS: BP 117/77
--- NOTE | 2017-09-05 17:20 | Pulmonary Progress Note ---
Exam Exam Vital Signs Date Time Temp Pulse Resp B/P (MAP) Pulse Ox O2 Delivery O2 Flow Rate FiO2 09/05/17 15:17 97.6 79 18 117/77 (90) 93 Room Air 09/05/17 13:00 71 09/05/17 11:52 98.1 85 20 138/88 (105) 93 Room Air 09/05/17 08:20 Room Air 09/05/17 08:16 97.5 69 20 136/82 (100) 94 Room Air 09/05/17 07:00 72 09/05/17 03:30 97.5 66 20 141/97 (112) 93 Nasal Cannula 2.00 09/05/17 01:00 60 09/04/17 23:15 97.2 77 18 136/89 (105) 94 Nasal Cannula 2.00 09/04/17 21:00 94 Nasal Cannula 2.00 09/04/17 20:35 94 Nasal Cannula 2.00 09/04/17 20:00 97.9 79 18 133/91 (105) 92 Room Air 09/04/17 18:59 68 09/04/17 18:00 76 128/92 (104) 91 Room Air I & O 09/05/17 07:00 Intake Total 1766 ml Output Total 200 ml Balance 1566 ml General Appearance: No Apparent Distress, WD/WN, Chronically ill, Obese HEENT: PERRL/EOMI, Normal ENT Inspection, Pharynx Normal Neck: Full Range of Motion, Normal Inspection, Non Tender, Supple, Carotid Bruit Respiratory: Chest Non Tender, Lungs Clear, Normal Breath Sounds, No Accessory Muscle Use, No Respiratory Distress Cardiovascular: No Edema, No Gallop, No JVD, No Murmur, Normal Peripheral Pulses, Irregularly Irregular, Tachycardia Capillary Refill: Less Than 3 Seconds Extremity: Normal Capillary Refill, Normal Inspection, Normal Range of Motion, Non Tender, No Calf Tenderness, No Pedal Edema Neurologic/Psychiatric: Alert, Oriented x3, No Motor/Sensory Deficits, Normal Mood/Affect Skin: Normal Color, Warm/Dry Lymphatic: No Adenopathy Results Lab Laboratory Tests 09/04/17 03:20 Assessment/Plan Assessment/Plan Afib RVR -Eliquis -Cardiology following Morbid obese, nocturnal desats (per NETWORK DESKTOP SUPPORT SPECIALIST), witnessed apnea, snoring -Out patient PSG Hypoxia -2liters of oxygen I will have pt f/u with me as an out patient to get his TREV diagnosed. BYRON AHUJA DO Sep 05, 2017 17:20
[2017-09-05 19:40] VITALS: BP 123/74
[2017-09-05] MEDS: ATORVASTATIN 40 MG (LIPITOR) TABLET PO SCH (20:43)
[2017-09-05 23:25] VITALS: BP 131/71
[2017-09-06 03:29] LABS: BASOPHILS % (AUTO) 0 % (0-10); EOSINOPHILS # (AUTO) 0.2 10^3/uL (0.0-0.3); EOSINOPHILS % (AUTO) 2 % (0-10); HEMATOCRIT 45 % (40-54); LYMPHOCYTES # (AUTO) 1.8 X 10^3 (1.0-4.0); LYMPHOCYTES % (AUTO) 22 % (12-44); MEAN CORPUSCULAR HEMOGLOBIN 30 PG (25-34); MEAN CORPUSCULAR HGB CONC 33 G/DL (32-36); MEAN CORPUSCULAR VOLUME 91 FL (80-99); MEAN PLATELET VOLUME 11.3 FL (7.4-10.4); MONOCYTES # (AUTO) 0.7 X 10^3 (0.0-1.0); MONOCYTES % (AUTO) 8 % (0-12); NEUTROPHILS # (AUTO) 5.7 X 10^3 (1.8-7.8); NEUTROPHILS % (AUTO) 68 % (42-75); PLATELET COUNT 194 10^3/uL (130-400); RED BLOOD COUNT 4.98 10^6/uL (4.35-5.85); RED CELL DISTRIBUTION WIDTH 14.6 % (10.0-14.5); WHITE BLOOD COUNT 8.3 10^3/uL (4.3-11.0)
[2017-09-06 03:57] LABS: BUN/CREATININE RATIO 20; CALCIUM 9.2 MG/DL (8.5-10.1); CARBON DIOXIDE 24 MMOL/L (21-32); CHLORIDE 105 MMOL/L (98-107); CREATININE SERUM 0.95 MG/DL (0.60-1.30); GFR ESTIMATED > 60; GLUCOSE 140 MG/DL (70-105); POTASSIUM 4.1 MMOL/L (3.6-5.0); SODIUM 139 MMOL/L (135-145)
[2017-09-06 05:00] VITALS: BP 127/68
--- NOTE | 2017-09-06 05:03 | Pulmonary Progress Note ---
Exam Exam Vital Signs Date Time Temp Pulse Resp B/P (MAP) Pulse Ox O2 Delivery O2 Flow Rate FiO2 09/06/17 01:00 74 09/05/17 23:25 98.0 61 14 131/71 (91) 92 Room Air 09/05/17 22:01 0.00 09/05/17 20:20 71 09/05/17 20:15 95 Room Air 09/05/17 19:40 98.6 66 18 123/74 (90) 95 Room Air 09/05/17 19:00 76 09/05/17 15:17 97.6 79 18 117/77 (90) 93 Room Air 09/05/17 13:00 71 09/05/17 11:52 98.1 85 20 138/88 (105) 93 Room Air 09/05/17 08:20 Room Air 09/05/17 08:16 97.5 69 20 136/82 (100) 94 Room Air 09/05/17 07:00 72 I & O 09/06/17 07:00 Intake Total 1972 ml Output Total 3475 ml Balance -1503 ml General Appearance: No Apparent Distress, WD/WN, Chronically ill, Obese HEENT: PERRL/EOMI, Normal ENT Inspection, Pharynx Normal Neck: Full Range of Motion, Normal Inspection, Non Tender, Supple, Carotid Bruit Respiratory: Chest Non Tender, Lungs Clear, Normal Breath Sounds, No Accessory Muscle Use, No Respiratory Distress Cardiovascular: No Edema, No Gallop, No JVD, No Murmur, Normal Peripheral Pulses, Irregularly Irregular, Tachycardia Capillary Refill: Less Than 3 Seconds Extremity: Normal Capillary Refill, Normal Inspection, Normal Range of Motion, Non Tender, No Calf Tenderness, No Pedal Edema Neurologic/Psychiatric: Alert, Oriented x3, No Motor/Sensory Deficits, Normal Mood/Affect Skin: Normal Color, Warm/Dry Lymphatic: No Adenopathy Results Lab Laboratory Tests 09/06/17 03:00 Assessment/Plan Assessment/Plan Afib RVR -Eliquis -Cardiology following Morbid obese, nocturnal desats (per COMMERCIAL ACCOUNT EXECUTIVE), witnessed apnea, snoring -Out patient PSG Hypoxia -Currently sating well on RA I will have pt f/u with me as an out patient to get his TREV diagnosed. 232 BYRON AHUJA DO Sep 06, 2017 05:03
[2017-09-06] MEDS: CATHETER FLUSH 10 ML SYR IV SCH ×2 (05:30→14:14)
--- NOTE | 2017-09-06 08:46 | Progress Note-Cardiology ---
Cardiology SOAP Progress Note Objective: I&O/Vital Signs Vital Sign - Last 12Hours 09/06/17 09/06/17 09/06/17 09/06/17 05:00 07:00 09:45 12:37 Temp 97.9 98.7 Pulse 66 79 77 76 Resp 18 18 B/P (MAP) 127/68 (87) 125/79 (94) 124/80 (95) Pulse Ox 93 95 94 O2 Delivery Room Air Room Air Intake and Output 09/06/17 00:00 Intake Total 1136 ml Output Total 2925 ml Balance -1789 ml Weight (Pounds): 336 Weight (Ounces): 8.0 Weight (Calculated Kilograms): 152.777160 Constitutional: AAO x 3, well-developed, well-nourished, other (obese) Respiratory: No accessory muscle use, No respiratory distress, lungs clear to auscultation, No stridor, No wheezing Cardiovascular: irregularly irregular, S1 and S2, systolic murmur (faint JUANITA at card base) Gastrointestional: No tender, soft, No guarding, No rebound, audible bowel sounds Extremities: No clubbing, No cyanosis, No significant edema Neurologic/Psychiatric: oriented x 3, grossly intact, power is 5/5 both on sides Skin: No rash, No ulcerations Results/Procedures: Labs Laboratory Tests 09/06/17 03:00: White Blood Count 8.3, Red Blood Count 4.98, Hemoglobin 15.0, Hematocrit 45, Mean Corpuscular Volume 91, Mean Corpuscular Hemoglobin 30, Mean Corpuscular Hemoglobin Concent 33, Red Cell Distribution Width 14.6H, Platelet Count 194, Mean Platelet Volume 11.3H, Neutrophils (%) (Auto) 68, Lymphocytes (%) (Auto) 22 , Monocytes (%) (Auto) 8, Eosinophils (%) (Auto) 2, Basophils (%) (Auto) 0, Neutrophils # (Auto) 5.7, Lymphocytes # (Auto) 1.8, Monocytes # (Auto) 0.7, Eosinophils # (Auto) 0.2, Basophils # (Auto) 0.0, Sodium Level 139, Potassium Level 4.1, Chloride Level 105, Carbon Dioxide Level 24, Anion Gap 10, Blood Urea Nitrogen 19H, Creatinine 0.95, Estimat Glomerular Filtration Rate > 60, BUN /Creatinine Ratio 20, Glucose Level 140H, Calcium Level 9.2 Microbiology 09/03/17 MRSA Screen - Final, Complete MRSA not isolated A/P: Assessment: Shortness of breath, probably multifactorial (see below) Atrial fibrillation of unknown age associated with RVR. First documented on 09/01. Now rate is better controlled Obesity with BMI approx Probable obesity-hypoventilation syndrome Acute diastolic CHF Suspected TREV TSH normal on 09/05/17 (1.93) Plan: * Multiple issues reviewed and discussed with the patient * Dilt for rate control * Apixaban for stroke prophylaxis * Recommend sleep studies * Add diuretic to control symptoms of CHF * Monitor labs * Echo to eval for structural heart disease * Advised efforts at wgt loss and discussed its importance * I spoke with him and his and answered questions STARLA GROVES Sep 06, 2017 08:46
[2017-09-06] MEDS ORDERED: FUROSEMIDE 40 MG (LASIX) TAB PO SCH (09:00)
[2017-09-06] MEDS ORDERED: KCL 10 MEQ TAB (MICRO K) PO SCH (09:00)
[2017-09-06] MEDS ORDERED: REGADENOSON 0.4 MG/5 ML SYR (LEXISCAN) IV ONE ×2 (09:41→10:00)
[2017-09-06 09:45] VITALS: BP 125/79
[2017-09-06] MEDS: APIXABAN 5 MG (ELIQUIS) TABLET PO SCH (11:32)
[2017-09-06] MEDS: DILTIAZEM 180 MG (CARDIZEM CD) CAP PO SCH (11:32)
[2017-09-06 12:37] VITALS: BP 124/80
--- NOTE | 2017-09-06 13:18 | Progress Note-Cardiology ---
Cardiology SOAP Progress Note Subjective: Feels well. Denies cp or palp or syncope. Wishes to go home Objective: I&O/Vital Signs Vital Sign - Last 12Hours 09/06/17 09/06/17 09/06/17 09/06/17 05:00 07:00 09:45 12:37 Temp 97.9 98.7 Pulse 66 79 77 76 Resp 18 18 B/P (MAP) 127/68 (87) 125/79 (94) 124/80 (95) Pulse Ox 93 95 94 O2 Delivery Room Air Room Air Intake and Output 09/06/17 00:00 Intake Total 1136 ml Output Total 2925 ml Balance -1789 ml Weight (Pounds): 336 Weight (Ounces): 8.0 Weight (Calculated Kilograms): 152.977534 Constitutional: AAO x 3, well-developed, well-nourished, other (obese) Respiratory: No accessory muscle use, No respiratory distress, lungs clear to auscultation, No stridor, No wheezing Cardiovascular: irregularly irregular, S1 and S2, systolic murmur (faint JUANITA at card base) Gastrointestional: No tender, soft, No guarding, No rebound, audible bowel sounds Extremities: No clubbing, No cyanosis, No significant edema Neurologic/Psychiatric: oriented x 3, grossly intact, power is 5/5 both on sides Skin: No rash, No ulcerations Results/Procedures: Labs Laboratory Tests 09/06/17 03:00: White Blood Count 8.3, Red Blood Count 4.98, Hemoglobin 15.0, Hematocrit 45, Mean Corpuscular Volume 91, Mean Corpuscular Hemoglobin 30, Mean Corpuscular Hemoglobin Concent 33, Red Cell Distribution Width 14.6H, Platelet Count 194, Mean Platelet Volume 11.3H, Neutrophils (%) (Auto) 68, Lymphocytes (%) (Auto) 22 , Monocytes (%) (Auto) 8, Eosinophils (%) (Auto) 2, Basophils (%) (Auto) 0, Neutrophils # (Auto) 5.7, Lymphocytes # (Auto) 1.8, Monocytes # (Auto) 0.7, Eosinophils # (Auto) 0.2, Basophils # (Auto) 0.0, Sodium Level 139, Potassium Level 4.1, Chloride Level 105, Carbon Dioxide Level 24, Anion Gap 10, Blood Urea Nitrogen 19H, Creatinine 0.95, Estimat Glomerular Filtration Rate > 60, BUN /Creatinine Ratio 20, Glucose Level 140H, Calcium Level 9.2 Microbiology 09/03/17 MRSA Screen - Final, Complete MRSA not isolated A/P: Assessment: Shortness of breath, probably multifactorial (see below) Atrial fibrillation of unknown age associated with RVR. First documented on 09/01. Now rate is better controlled Obesity with BMI approx 51 Probable obesity-hypoventilation syndrome Acute diastolic CHF, currently clinically compensated MPI of 09/06/17: No significant ischemia or infarction, LVEF 51% Echo of 09/02/17 at the [facility]: TDS, LVEF 60%, mod enlargement of LA, mild MAC and AoV scleroiss w/o stenoses, PASP couldn't be determined Suspected TREV, managed by the Pulm Svce TSH normal on 09/05/17 (1.93) Impaired fasting glucose vs DM II, managed by the Med Svce Plan: * I discussed his card w/u details with him (summarized above) * I discussed our treatment strategy with him * I educated him on the management of CHF * I advised efforts at wgt loss * Outpt f/u is advised ЕКАТЕРИНА HIGHTOWER MD FACP FAC CCDS Sep 06, 2017 13:18
--- NOTE | 2017-09-06 13:37 | Discharge Summary-Hospitalist ---
Diagnosis/Chief Complaint Date of Admission Sep 03, 2017 at 6:31 pm Date of Discharge Discharge Date: Sep 06, 2017 Admission Diagnosis Assessment: New-onset atrial fibrillation with rapid ventricular response Presumed sleep apnea will need sleep study and evaluation as an outpatient Rib fractures in June 2017 and resulted pulmonary infections with pneumonias 4 times since that time Hypoxemia baseline on ABG Hyperlipidemia Discharge Diagnosis Assessment: New-onset atrial fibrillation with rapid ventricular response- now rate well controlled Underwent stress test per Dr Davis- low risk Presumed sleep apnea will need sleep study and evaluation as an outpatient- followed by Dr José Rib fractures in June 2017 and resulted pulmonary infections with pneumonias 4 times since that time Hyperlipidemia Discharge Summary Consultations Dr José- Pulm Dr Davis- Cardiology Discharge Physical Examination Allergies: Coded Allergies: No Known Drug Allergies (Unverified , 06/23/12) Vitals & I&Os Vital Signs Date Time Temp Pulse Resp B/P (MAP) Pulse Ox O2 Delivery O2 Flow Rate FiO2 09/06/17 12:37 98.7 76 18 124/80 (95) 94 Room Air 09/05/17 22:01 0.00 Hospital Course Pt is a 66yoCF who presented to the ER by request of his PCP for a-fib noted on outpatient EKG. He was found to be in a-fib with RVR and admitted to the ICU. He was started on a cardizem gtt and was eventually transitioned to oral Cardizem with well controlled rate. He was started on Eliquis for anticoagulation. He was noted by nursing staff to have episodes concerning for sleep apnea at night and he is to follow up with Dr José for PSG. He underwent stress testing on 09/06 which was low risk per Dr Davis. He was discharged home in stable condition. Labs (last 24 hrs) Laboratory Tests 09/06/17 03:00: White Blood Count 8.3, Red Blood Count 4.98, Hemoglobin 15.0, Hematocrit 45, Mean Corpuscular Volume 91, Mean Corpuscular Hemoglobin 30, Mean Corpuscular Hemoglobin Concent 33, Red Cell Distribution Width 14.6H, Platelet Count 194, Mean Platelet Volume 11.3H, Neutrophils (%) (Auto) 68, Lymphocytes (%) (Auto) 22 , Monocytes (%) (Auto) 8, Eosinophils (%) (Auto) 2, Basophils (%) (Auto) 0, Neutrophils # (Auto) 5.7, Lymphocytes # (Auto) 1.8, Monocytes # (Auto) 0.7, Eosinophils # (Auto) 0.2, Basophils # (Auto) 0.0, Sodium Level 139, Potassium Level 4.1, Chloride Level 105, Carbon Dioxide Level 24, Anion Gap 10, Blood Urea Nitrogen 19H, Creatinine 0.95, Estimat Glomerular Filtration Rate > 60, BUN /Creatinine Ratio 20, Glucose Level 140H, Calcium Level 9.2 Microbiology 09/03/17 MRSA Screen - Final, Complete MRSA not isolated Discussion & Recommendations Discharge Planning: >30 minutes discharge planning Discharge Home Medications: Active Scripts Active Reported Aspirin 81 Mg Tab.chew 81 Mg PO DAILY Instructions to patient/family Please see electronic discharge instructions given to patient. Clinical Quality Measures DVT/VTE Risk/Contraindication: Risk Factor Score Per Nursin RFS Level Per Nursing on Admit: 3=High Copy Copies To 1: EBONY Felton MD Sep 06, 2017 1:37 pm
[2017-09-06] MEDS ORDERED: POTA10TA6 PO (14:15)
[2017-09-06] MEDS ORDERED: FURO40TA4 PO (14:15)
[2017-09-06] MEDS ORDERED: ATOR40TA PO (14:15)
[2017-09-06] MEDS ORDERED: APIX5TAB PO (14:15)
[2017-09-06] MEDS ORDERED: DILT180C90 PO (14:15)
--- NOTE | 2017-09-06 15:05 | STRESS TEST ---
DATE OF SERVICE: 09/06/2017 RESTING AND POST REGADENOSON TECHNETIUM-99M TETROFOSMIN SPECT CT IMAGING ORDERING PHYSICIAN: Jairon Davis MD PRIMARY CARE PHYSICIAN: Dr. Miller. OTHER PHYSICIAN: VICKI Sandoval CLINICAL DIAGNOSES: Atrial fibrillation, shortness of breath. Baseline images were carried out after injection of 10.93 mCi of technetium-99m tetrofosmin. Subsequently, 0.4 mg of regadenoson and 28.3 mCi of technetium-99m tetrofosmin were given for stress imaging. He remained in atrial fibrillation throughout the study. Overall, he tolerated the procedure well. The electrocardiogram did not change significantly with the regadenoson infusion. Review of images at rest and following stress does not indicate any distinct perfusion defects consistent with myocardial ischemia or infarction. There is some degree of diaphragmatic attenuation both at rest and following regadenoson infusion. Gated images show normal regional wall motion, including normal motion of the diaphragmatic wall of the left ventricle. Left ventricular ejection fraction is calculated to be 51%. Left ventricular end diastolic volume is 86 mL. TID is absent (0.94). CONCLUSIONS: 1. No evidence of significant myocardial ischemia or infarction on this study. 2. Normal regional wall motion. 3. Well preserved global left ventricular systolic function with a calculated ejection fraction of 51%. Job ID: [id number] DocumentID: [id number] Dictated Date: 09/06/2017 12:34:47 Director Of Corporate Sponsorships Date: 09/06/2017 15:05:11 Dictated By: JAIRON DAVIS MD, MA, FACP, FACC,
[2017-09-06 15:30] VITALS: BP 124/80
== END 2017-09-06 15:45 | disposition home or self-care (01) | DRG 308 ==
LOC: EDUNIT# 16:12 → ER 16:14 → ICU 18:31
PROVIDERS: ADMIT Internal Medicine; ATTEND Internal Medicine
DX: I48.0 Paroxysmal atrial fibrillation (principal); I50.31 Acute diastolic (congestive) heart failure; E66.01 Morbid (severe) obesity due to excess calories; Z68.43 Body mass index [BMI] 50.0-59.9, adult; R09.02 Hypoxemia; G47.30 Sleep apnea, unspecified; I35.8 Other nonrheumatic aortic valve disorders; M06.9 Rheumatoid arthritis, unspecified; E78.5 Hyperlipidemia, unspecified; Z87.01 Personal history of pneumonia (recurrent)
CPT/HCPCS: 36415; 71045; 78452; 80048; 80053; 80061; 82805; 83735; 83874; 84100; 84443; 84484; 85025; 85610; 85730; 87081; 93017; 93041; 94761; 94762; 96374

== ENCOUNTER → 2017-10-18 | Outpatient (CLI) | payer MEDICARE, BC ==
[~2017-10-18] MED LIST changes: +APIX5TAB PO; +APIX5TAB4 PO; +ASPI-999 PO; +ATOR40TA PO; +ATOR40TA70 PO; +DILT180C82 PO; +DILT180C90 PO; +FLEC100T PO; +FURO40TA4 PO; +MULT1TAB69 PO; +POTA10TA10 PO; +POTA10TA6 PO
== END ==
LOC: RT 09:44
PROVIDERS: ATTEND Nurse Practitioner Family
DX: G47.33 Obstructive sleep apnea (adult) (pediatric) (principal); G47.50 Parasomnia, unspecified
CPT/HCPCS: 94060; 94726; 94729

== ENCOUNTER 2017-10-20 19:44 | Outpatient (CLI) | payer MEDICARE, BC ==
[~2017-10-20 19:44] MED LIST changes: -APIX5TAB4 PO; -ATOR40TA70 PO; -DILT180C82 PO; -FLEC100T PO; -MULT1TAB69 PO; -POTA10TA10 PO
== END 2017-10-21 06:15 | disposition home or self-care (01) ==
LOC: SLEEP 19:44
PROVIDERS: ATTEND Nurse Practitioner Family
DX: G47.33 Obstructive sleep apnea (adult) (pediatric) (principal); G47.50 Parasomnia, unspecified; G47.34 Idiopathic sleep related nonobstructive alveolar hypoventilation; R06.00 Dyspnea, unspecified
CPT/HCPCS: 95811

== ENCOUNTER 2017-11-23 07:05 | Day surgery (SDC) | payer BC, MEDICARE ==
[~2017-11-23] VITALS: Ht 175.3 cm; Wt 149.7 kg
[~2017-11-23 07:05] MED LIST changes: +NS IV 1000 ML 1,000 ML ONE
[2017-11-23] MEDS ORDERED: NS IV 1000 ML 1,000 ML IV SCH (07:15)
[2017-11-23 07:22] VITALS: BP 133/89
[2017-11-23] MEDS ORDERED: POTA10TA10 PO (07:41)
[2017-11-23] MEDS ORDERED: MULT1TAB69 PO (07:41)
[2017-11-23] MEDS ORDERED: FURO40TA4 PO (07:41)
[2017-11-23] MEDS ORDERED: DILT180C82 PO (07:41)
[2017-11-23] MEDS ORDERED: APIX5TAB4 PO (07:41)
[2017-11-23] MEDS ORDERED: ATOR40TA70 PO (07:41)
[2017-11-23 07:42] LABS: MEAN PLATELET VOLUME 10.8 FL (7.4-10.4); RED CELL DISTRIBUTION WIDTH 14.7 % (10.0-14.5); WHITE BLOOD COUNT 7.4 10^3/uL (4.3-11.0)
[2017-11-23 07:55] LABS: INR 1.2 (0.8-1.4); PROTHROMBIN TIME PATIENT 15.1 SEC (12.2-14.7)
[2017-11-23 08:04] LABS: ALANINE AMINOTRANSFERASE 26 U/L (0-55); ALBUMIN 3.8 GM/DL (3.2-4.5); ALKALINE PHOSPHATASE 105 U/L (40-136); BILIRUBIN,TOTAL 0.8 MG/DL (0.1-1.0); BUN/CREATININE RATIO 27; CALCIUM 9.4 MG/DL (8.5-10.1); CARBON DIOXIDE 21 MMOL/L (21-32); CHLORIDE 108 MMOL/L (98-107); CHOLESTEROL 177 MG/DL (< 200); CREATININE SERUM 1.05 MG/DL (0.60-1.30); GFR ESTIMATED > 60; GLUCOSE 153 MG/DL (70-105); HDL CHOLESTEROL 43 MG/DL (40-60); POTASSIUM 4.5 MMOL/L (3.6-5.0); SODIUM 141 MMOL/L (135-145); TOTAL PROTEIN 7.2 GM/DL (6.4-8.2); TRIGLYCERIDES 107 MG/DL (<150); VLDL CHOLESTEROL 21 MG/DL (5-40)
[2017-11-23] MEDS ORDERED: proPOfol 200 MG/20 ML (DIPRIVAN) VIAL IV ONE (08:11)
[2017-11-23 09:20] VITALS: BP 138/85
[2017-11-23 09:27] VITALS: BP 125/97
[2017-11-23 09:32] VITALS: BP 119/87
--- NOTE | 2017-11-23 09:43 | Anesthesia-Procedure Note ---
Procedures/Interventions Procedure Start/Stop/Diagnosis Date of Procedure: November 23, 2017 Start Time: 09:15 Referring Physician: Ryan Preprocedural Diagnosis: Atrial Fibrillation Brief History Called to sugar laboratory assistant for scheduled cardioversion of A-Fib. Pt. found supine with monitors applied, IV patent. NPO/HX verified. O2 per NC. Propofol bolus of 80mg total given without complications. 138/72, 76 16 98%. Left pt in care of RN after cardioversion. ASA 3 MAC Stop Time: 09:25 Postprocedural Diagnosis: Atrial Fibrillation DEANNA BRUMFIELD CRNA November 23, 2017 09:43
--- NOTE | 2017-11-23 09:44 | Anesthesia-General Post-Op ---
MAC Patient Condition Mental Status/LOC: Same as Preop Cardiovascular: Satisfactory Nausea/Vomiting: Absent Respiratory: Satisfactory Pain: Controlled Complications: Absent Post Op Complications Complications None Follow Up Care/Instructions Patient Instructions None needed. Anesthesiology Discharge Order Discharge Order Patient is doing well, no complaints, stable vital signs, no apparent adverse anesthesia problems. No complications reported per nursing. DEANNA BRUMFIELD CRNA November 23, 2017 09:44
[2017-11-23 09:53] VITALS: BP 129/101
[2017-11-23 10:13] VITALS: BP 138/87
--- NOTE | 2017-11-23 11:07 | Cardiac Procedure Note-CS/ASA ---
Pre-Procedure Note Pre-Op Procedure Note H&P Reviewed The H&P was reviewed, patient examined and no changes noted. Date H&P Reviewed: November 23, 2017 Time H&P Reviewed: 09:00 Conscious Sedation Pre-Proced Time Reviewed: 09:00 ASA Class: 3 Airway Mallampati Classification: (ambler appropriate class) I. II. III, IV Lungs Heart ASA score ASA 1: a normal healthy patient ASA 2: a patient with a mild systemic disease (mid diabetes, controlled hypertension, obesity ASA 3: a patient with a severe systemic disease that limits activity (angina , COPD, prior Myocardial infarction) ASA 4: a patient with an incapacitating disease that is a constant threat to life (CHF, renal failure) ASA 5: a moribund patient not expected to survive 24 hrs. (ruptured aneurysm) ASA 6: a declared brain patient whose organs are being harvested. For emergent operations, add the letter E after the classification Grade 3 Sedation Plan: Analgesia, Amnesia, Plan communicated to team members, Discussed options with patient/fam, Discussed risks with patient/fam Note The patient is an appropriate candidate to undergo the planned procedure, sedation, and anesthesia. The patient immediately re-assessed prior to indication. ЕКАТЕРИНА HIGHTOWER MD FACP FAC CCDS November 23, 2017 11:07
--- NOTE | 2017-11-23 18:22 | OPERATIVE REPORT ---
DATE OF SERVICE: 11/23/2017 PREOPERATIVE DIAGNOSIS: Atrial fibrillation. POSTOPERATIVE DIAGNOSIS: Sinus rhythm degenerating into atrial fibrillation again PROCEDURE: External electrical cardioversion. DESCRIPTION OF PROCEDURE: The patient is a 67-year-old man with chronic atrial fibrillation who has been fully anticoagulated for several months prior to the procedure. Anticoagulation has been without any interruption. He provided informed consent for the procedure. The nurse spiritual minister gave short acting anesthesia under which 120 joules of external electrical cardioversion was synchronized. External electrical cardioversion was carried out which restored sinus rhythm for a short while, which then degenerated into atrial fibrillation again. This was reviewed with the patient and his . It appears unlikely that repeat shocks would maintain sinus rhythm. They wanted to proceed with a pharmacologic therapy prior to considering another electrical cardioversion. He does not have any known history of coronary artery disease and had a recent myocardial perfusion study, which did not indicate any coronary ischemia or infarction and left ventricular ejection fraction was normal. We have initiated therapy with flecainide 100 mg twice a day after a full discussion of potential side-effect, including risk of pro-arrhythmia. He wishes to proceed with such treatment. Outpatient followup is advised. Repeat cardioversion will be considered. Job ID: [id number] DocumentID: [id number] Dictated Date: 11/23/2017 11:27:39 Vocational Nurse Lvn Date: 11/23/2017 18:21:56 Dictated By: ЕКАТЕРИНА HIGHTOWER MD, MA, FACP, FACC, MTDD
== END 2017-11-23 10:14 | disposition home or self-care (01) ==
LOC: CATH 07:05
PROVIDERS: ATTEND Internal Medicine Cardiovascular Disease
DX: I48.0 Paroxysmal atrial fibrillation (principal); E78.5 Hyperlipidemia, unspecified; G47.33 Obstructive sleep apnea (adult) (pediatric); E66.01 Morbid (severe) obesity due to excess calories; Z68.42 Body mass index [BMI] 45.0-49.9, adult; Z79.01 Long term (current) use of anticoagulants; Z79.82 Long term (current) use of aspirin; Z79.899 Other long term (current) drug therapy
CPT/HCPCS: 36415; 80053; 80061; 85027; 85610; 85730; 87081; 92960; 93005

== ENCOUNTER 2017-12-07 07:02 | Day surgery (SDC) | payer MEDICARE, OTHER ==
[2017-12-07] VITALS (10 sets, daily range): BP systolic 117–145; BP diastolic 71–95
[~2017-12-07] VITALS: Ht 177.8 cm; Wt 149.7 kg
[~2017-12-07 07:02] MED LIST changes: +APIX5TAB4 PO; +ATOR40TA70 PO; +DILT180C82 PO; +MULT1TAB69 PO; -NS IV 1000 ML 1,000 ML ONE; +POTA10TA10 PO
[2017-12-07] MEDS ORDERED: NS IV 1000 ML 1,000 ML ONE (07:17)
[2017-12-07] MEDS ORDERED: NS IV 1000 ML 1,000 ML IV SCH (07:30)
[2017-12-07] MEDS ORDERED: FLEC100T PO (07:47)
[2017-12-07 07:52] LABS: HEMOGLOBIN 14.7 G/DL (13.3-17.7); MEAN PLATELET VOLUME 10.5 FL (7.4-10.4); RED BLOOD COUNT 4.85 10^6/uL (4.35-5.85); RED CELL DISTRIBUTION WIDTH 14.6 % (10.0-14.5); WHITE BLOOD COUNT 6.7 10^3/uL (4.3-11.0)
[2017-12-07 08:04] LABS: INR 1.1 (0.8-1.4); PROTHROMBIN TIME PATIENT 14.6 SEC (12.2-14.7)
[2017-12-07 08:16] LABS: ALANINE AMINOTRANSFERASE 24 U/L (0-55); ALBUMIN 3.8 GM/DL (3.2-4.5); ALKALINE PHOSPHATASE 106 U/L (40-136); BILIRUBIN,TOTAL 0.4 MG/DL (0.1-1.0); BUN/CREATININE RATIO 22; CALCIUM 9.4 MG/DL (8.5-10.1); CARBON DIOXIDE 24 MMOL/L (21-32); CHLORIDE 106 MMOL/L (98-107); CHOLESTEROL 174 MG/DL (< 200); CREATININE SERUM 0.99 MG/DL (0.60-1.30); GFR ESTIMATED > 60; GLUCOSE 175 MG/DL (70-105); HDL CHOLESTEROL 50 MG/DL (40-60); POTASSIUM 4.5 MMOL/L (3.6-5.0); SODIUM 141 MMOL/L (135-145); TOTAL PROTEIN 7.1 GM/DL (6.4-8.2); TRIGLYCERIDES 80 MG/DL (<150); VLDL CHOLESTEROL 16 MG/DL (5-40)
[2017-12-07] MEDS ORDERED: proPOfol 200 MG/20 ML (DIPRIVAN) VIAL IV ONE (08:24)
--- NOTE | 2017-12-07 09:15 | Cardiac Procedure Note-CS/ASA ---
Pre-Procedure Note Pre-Op Procedure Note H&P Reviewed The H&P was reviewed, patient examined and no changes noted. Date H&P Reviewed: Dec 07, 2017 Time H&P Reviewed: 08:10 Conscious Sedation Pre-Proced Time Reviewed: 08:10 ASA Class: 3 Airway Mallampati Classification: (andreafski appropriate class) I. II. III, IV Lungs Heart ASA score ASA 1: a normal healthy patient ASA 2: a patient with a mild systemic disease (mid diabetes, controlled hypertension, obesity ASA 3: a patient with a severe systemic disease that limits activity (angina , COPD, prior Myocardial infarction) ASA 4: a patient with an incapacitating disease that is a constant threat to life (CHF, renal failure) ASA 5: a moribund patient not expected to survive 24 hrs. (ruptured aneurysm) ASA 6: a declared brain patient whose organs are being harvested. For emergent operations, add the letter E after the classification Grade 3 Sedation Plan: Analgesia, Amnesia, Plan communicated to team members, Discussed options with patient/fam, Discussed risks with patient/fam Note The patient is an appropriate candidate to undergo the planned procedure, sedation, and anesthesia. The patient immediately re-assessed prior to indication. ЕКАТЕРИНА HIGHTOWER MD FACP FAC CCDS Dec 07, 2017 09:15
--- NOTE | 2017-12-07 09:18 | Discharge Inst-Cardiology ---
Discharge Inst-Cardiac Discharge Medications Continued Medications: Apixaban (Eliquis) 5 Mg Tab.ds.pk 5 MG PO BID Aspirin (Aspirin) 81 Mg Tab.chew 81 MG PO DAILY, TAB Atorvastatin Calcium (Atorvastatin Calcium) 40 Mg Tablet 40 MG PO HS, TAB Diltiazem HCl (Diltiazem ER) 180 Mg Capsule.er 360 MG PO DAILY, CAP Flecainide Acetate (Flecainide Acetate) 100 Mg Tablet 100 MG PO BID, TAB Furosemide (Furosemide) 40 Mg Tablet 40 MG PO DAILY, TAB Multivitamin (Multivitamins) 1 Each Tablet 1 EACH PO DAILY, TAB Potassium Chloride (Potassium Chloride) 10 Meq Tablet.er 10 MEQ PO DAILY, TAB Patient Instructions Patient Instructions: F/u with Dr Davis in [address] Davis's office regarding EP consult with Dr Parish at [facility] Orders-Post D/C & Referrals Pneu Vac Indicated: Yes ЕКАТЕРИНА DAVIS MD [facility] CCDS Dec 07, 2017 09:18
--- NOTE | 2017-12-07 09:51 | Anesthesia-Procedure Note ---
Procedures/Interventions Procedure Start/Stop/Diagnosis Date of Procedure: Dec 07, 2017 Start Time: 08:30 Stop Time: 08:40 RISA/Cardioversion ASA Class: 3 Medications propofol 40 mg IV Monitors and Equipment: BP Cuff - Right, Continuous EKG, End Tidal CO2, IV, Pulse Oximeter ESDRAS TURNER CRNA Dec 07, 2017 09:51
--- NOTE | 2017-12-07 13:36 | OPERATIVE REPORT ---
DATE OF SERVICE: 12/07/2017 PREOPERATIVE DIAGNOSIS: Atrial fibrillation. POSTOPERATIVE DIAGNOSIS: Atrial fibrillation. PROCEDURE: External electrical cardioversion. INDICATIONS: The patient is a 67-year-old man with atrial fibrillation who underwent electrical cardioversion several days ago, which lasted only a short while. He has since been treated with flecainide and came in for another attempt at electrical cardioversion. Short acting anesthesia was provided by the nurse senior corporate strategy manager. A 120 joules synchronized shock did not convert him into sinus rhythm. A 200 joule shock converted him to sinus rhythm only for a few beats and he went into atrial fibrillation again. Job ID: [id number] DocumentID: [id number] Dictated Date: 12/07/2017 08:53:51 It Desktop Support Specialist Date: 12/07/2017 13:35:55 Dictated By: ЕКАТЕРИНА HIGHTOWER MD, MA, FACP, FACC, MTDD
== END 2017-12-07 10:05 | disposition home or self-care (01) ==
LOC: CATH 07:02 → SURG 08:59 → CATH 10:05
PROVIDERS: ATTEND Internal Medicine Cardiovascular Disease
DX: I48.91 Unspecified atrial fibrillation (principal); E66.2 Morbid (severe) obesity with alveolar hypoventilation; E78.5 Hyperlipidemia, unspecified; Z68.43 Body mass index [BMI] 50.0-59.9, adult
CPT/HCPCS: 36415; 80053; 80061; 85027; 85610; 85730; 87081; 92960